=== PATIENT | female | born 1950 ===

== ENCOUNTER 2021-09-29 10:21 | Emergency (ER) | payer SELFPAY ==
[~2021-09-29] VITALS: Ht 162.6 cm; Wt 84.1 kg
[2021-09-29 10:22] VITALS: BP 107/62
[2021-09-29] MEDS ORDERED: LOSA25TA13 PO (10:34)
[2021-09-29] MEDS ORDERED: TIZA2CAP PO (10:34)
[2021-09-29] MEDS ORDERED: LEVO25TA5 PO (10:34)
[2021-09-29] MEDS ORDERED: ZETI10TA16 PO (10:34)
[2021-09-29] MEDS ORDERED: TRIA37.5 PO (10:34)
[2021-09-29] MEDS ORDERED: PANT40TA29 PO (10:34)
== END 2021-09-29 14:58 | disposition left against medical advice (07) ==
LOC: M ED 10:21
DX: Z53.9 Procedure and treatment not carried out, unspecified reason (principal)

== ENCOUNTER → 2023-08-30 | Outpatient (CLI) | payer MEDICARE, BC ==
[~2023-08-30] MED LIST: EZET10TA58 PO; LEVO25TA5 PO; LOSA25TA13 PO; PANT40TA29 PO; TIZA2CAP PO; TRIA37.5 PO
== END ==
LOC: M SOG 07:58
PROVIDERS: ATTEND Physician Assistant
DX: M25.562 Pain in left knee (principal); M17.12 Unilateral primary osteoarthritis, left knee; M11.262 Other chondrocalcinosis, left knee